=== PATIENT | female | born 1940 | race Caucasian/White ===

== ENCOUNTER → 2018-06-18 | Outpatient (CLI) | payer MEDICARE ==
--- NOTE | 2018-06-18 16:08 | BD ---
EXAMINATION TYPE: Axial Bone Density DATE OF EXAM: 06/18/2018 COMPARISON: NONE CLINICAL HISTORY: screening Height: 5'1 1/2 Weight: 157 FRAX RISK QUESTIONS: Secondary Osteoporosis: RISK FACTORS HISTORY OF: Postmenopausal woman: y Lost more than 2 inches in height since high school: y MEDICATIONS: Thyroid Medications: Which medication: Synthroid How Lon years Additional Medications: allergies, arthritis, Additional History: EXAM MEASUREMENTS: Bone mineral densitometry was performed using the [email or web address] System. Bone mineral density as measured about the Lumbar spine is: ----- L1-L4(G/cm2): 1.526 T Score Values are as follows: ----- L2: 3.1 ----- L3: 5.1 ----- L4: 2.8 ----- L1-L4: 2.9 Bone mineral density about the R hip (g/cm2): 1.068 Bone mineral density about the L hip (g/cm2): 1.030 T Score values are as follows: -----R Neck: 0.2 -----L Neck: -0.1 -----R Total: 0.6 -----L Total: 0.7 IMPRESSION: Normal (Values between +1 and -1 indicate normal bone mass). Consider repeating this study in 5 year s or sooner if there is some new clinical indication. NOTE: T-SCORE=SD OF THE YOUNG ADULT MEAN.
== END ==
LOC: RADBDWWP 13:08
PROVIDERS: ATTEND Family Medicine
DX: Z13.820 Encounter for screening for osteoporosis (principal)
CPT/HCPCS: 77080

== ENCOUNTER 2018-12-04 17:03 | Inpatient (IN) | payer MEDICARE ==
[2018-12-04] MEDS ORDERED: metroNIDAZOLE-NS PMX 500 MG in SALINE 1 100ML.BAG IVPB STA (18:00)
[2018-12-04] MEDS ORDERED: NALOXONE 0.4 MG/ML 1 ML VIAL IV PRN (18:34)
--- NOTE | 2018-12-04 18:34 | ED ---
Abdominal Pain HPI - General Chief Complaint: Abdominal Pain Stated Complaint: Acute appendicitis Time Seen by Provider: 12/04/18 17:59 Source: patient Mode of arrival: ambulatory Limitations: no limitations - History of Present Illness Initial Comments: 78-year-old female presenting with chief complaint of appendicitis. Patient states on Monday she began to develop generalized abdominal pain and malaise. She had a Tmax 102 over the weekend. States he presented to her primary care physician he was concern for appendicitis so we sent her for an outpatient CT. Patient states she was then sent to the ER as a CT showed appendicitis. She currently denies any nausea vomiting or abdominal pain. She states she is not on a blood thinner. She last ate or drank 3 hours prior. She has no previous history of abdominal surgeries. - Related Data Home Medications Medication Instructions Recorded Confirmed Cholecalciferol [Vitamin D3] 2,000 unit PO DAILY 07/23/15 12/04/18 Gabapentin [Neurontin] 300 mg PO BID 07/23/15 12/04/18 Levocetirizine Dihydrochloride 5 mg PO DAILY 07/23/15 12/04/18 [Xyzal] Levothyroxine Sodium [Synthroid] 137 mcg PO DAILY 07/23/15 12/04/18 Meloxicam 15 mg PO DAILY 07/23/15 12/04/18 Vitamin B Complex 1 cap PO DAILY 07/23/15 12/04/18 Ca/D3/Mag/Zinc/[place]/Ab/Mgbor 1 tab PO BID 07/24/15 12/04/18 [Caltrate 600+D3+Min Chew Tab] Acetaminophen [Tylenol Extra 1,000 mg PO HS 12/04/18 12/04/18 Strength] Aspirin EC [Ecotrin Low Dose] 81 mg PO HS 12/04/18 12/04/18 Allergies Allergy/AdvReac Type Severity Reaction Status Date / Time erythromycin base AdvReac STOMACH Verified 12/04/18 17:59 UPSET SEASONAL Allergy EYES RED, Uncoded 12/04/18 17:22 RHINITIS Review of Systems ROS Statement: Those systems with pertinent positive or pertinent negative responses have been documented in the HPI. Review of Systems Constitutional: Positive fever, chills Eyes: Denies change in vision, Denies pain Ears, nose, mouth, throat: Denies headaches, Denies sore throat Cardiovascular: Denies chest pain. Denies palpitations Respiratory: Denies shortness of breath, Denies cough Gastrointestinal: Positive abdominal pain. Denies nausea, vomiting, diarrhea. Genitourinary: Denies hematuria, Denies infections Musculoskeletal: Denies pain, Denies swelling Integumentary: Denies rash Neurological: Denies headache, focal weakness, focal numbness Psychiatric: Denies anxiety, Denies depression Hematologic/Lymphatic: Denies easy bleeding or bruising ROS Other: All systems not noted in ROS Statement are negative. Past Medical History Past Medical History: Asthma, COPD, Eye Disorder, Hearing Disorder / Deafness, Osteoarthritis (OA), Thyroid Disorder Additional Past Medical History / Comment(s): ALLERGIC RHINITIS. CATARACTS. BACK, NECK PROB. RT KNEE INJ. VARICOSE VEINS. LT FOOT/ANKLE INJ RECENTLY, WEARING PRESSURE STOCKING. History of Any Multi-Drug Resistant Organisms: None Reported Past Surgical History: Breast Surgery Additional Past Surgical History / Comment(s): 1968 EXC RT BREAST BENIGN CYST, LOCAL ONLY. Past Anesthesia/Blood Transfusion Reactions: No Reported Reaction Additional Past Anesthesia/Blood Transfusion Reaction / Comment(s): NO PREVIOUS ANESTHESIA. Past Psychological History: Depression Smoking Status: Former smoker - Past Family History Mother Family Medical History: No Reported History General Exam - General Exam Comments Initial Comments: General: Awake, alert, No acute Distress HENT: Normocephalic. Atraumatic Eyes: PERRL. EOMI. No scleral icterus. No injected conjunctiva Neck: Full ROM Chest/Lungs: Clear to auscultation bilaterally. No wheezing, rhonchi, or rales Cardiac: Regular rate, rhythm. No murmurs or rubs Abdomen/GI: Soft. RLQ tenderness. No rebound, guarding, or rigidity. Musculoskeletal: Full ROM Skin: Warm, dry, intact Neurologic: A/Ox3, no weakness, no sensory deficit, no abnormal gait, no coordination deficit Limitations: no limitations Course Vital Signs 12/04/18 12/04/18 17:20 19:01 Temperature 99.0 F Pulse Rate 93 93 Respiratory 16 18 Rate Blood Pressure 133/77 137/81 O2 Sat by Pulse 96 98 Oximetry Medical Decision Making - Medical Decision Making 78-year-old female presenting with appendicitis. Initial exam the patient is awake, alert, no acute distress. VSS. Spoke with Dr. Farris was agreeable to a surgical admission. She is resting comfortable. Dr. Farris spoke with IR to have a drain placed in the patient's intraabominal abscess. She is currently stable for transfer to the floor. - Lab Data Result diagrams: 12/04/18 18:43 12/04/18 18:43 Disposition Clinical Impression: Acute appendicitis Disposition: ADMITTED IP TO THIS [facility] Decision to Admit Reason: Admit from EC Decision Date: 12/04/18 Decision Time: 18:34
[2018-12-04] MEDS: SODIUM CHLORIDE 0.9% 1,000 ML IV SCH (18:56)
[2018-12-04 18:57] LABS: Basophils # (A) 0.1 k/uL (0-0.2); Basophils % (A) 1 %; Eosinophils # (A) 0.3 k/uL (0-0.7); Eosinophils % (A) 3 %; HGB 12.6 gm/dL (11.4-16.0); Lymphocytes # (A) 1.5 k/uL (1.0-4.8); Lymphocytes % (A) 15 %; MCH 30.3 pg (25.0-35.0); MCHC 33.2 g/dL (31.0-37.0); MCV 91.3 fL (80.0-100.0); Mean Platelet Volume 7.6; Monocytes # (A) 0.5 k/uL (0-1.0); Monocytes % (A) 5 %; Neutrophils # (A) 7.1 k/uL (1.3-7.7); Neutrophils % (A) 73 %; Platelet Count 272 k/uL (150-450); RBC 4.17 m/uL (3.80-5.40); RDW 12.6 % (11.5-15.5); WBC 9.7 k/uL (3.8-10.6)
[2018-12-04 19:04] LABS: INR 0.9 (<1.2); Prothrombin Time 9.8 sec (9.0-12.0)
[2018-12-04 19:06] LABS: African American GFR (CKD) >90 (>60 ml/min/1.73 sqM); Anion Gap 9 mmol/L; Blood Urea Nitrogen 15 mg/dL (7-17); Calcium 9.6 mg/dL (8.4-10.2); Carbon Dioxide 29 mmol/L (22-30); Chloride 101 mmol/L (98-107); Glucose 87 mg/dL (74-99); Potassium 4.4 mmol/L (3.5-5.1); Sodium 139 mmol/L (137-145)
--- NOTE | 2018-12-04 20:37 | P.GSHP ---
History of Present Illness H&P Date: 12/04/18 78-year-old female presents to the emergency department after instructed by her primary care physician. She began having abdominal pain 1 week ago and did visit her primary care physician at that time. She states that it was a significant amount of abdominal pain and distention. She received some medication for pain and for nausea at that time. She was also scheduled for a computed tomography scan that she scheduled for today, which is 5 days after her presentation to her primary care physician's office. She states that the day after she visited her primary care doctor, her pain resolved and she had some bloating. She states that she denies any nausea or vomiting. She was kept on a clear liquid diet by her primary care physician for the past 5 days. She denies any change in bowel function. On CT that was performed, there was concern of appendicitis and a 4.7 x 3 x 3 cm abscess. Currently, the patient states she has some mild tenderness on the right side of her abdomen. She denies any fevers, chills, chest pain or shortness of breath over the past few days. She did have a febrile episode 5 days ago. - Review of Systems All systems: negative Past Medical History Past Medical History: Asthma, COPD, Eye Disorder, Hearing Disorder / Deafness, Osteoarthritis (OA), Thyroid Disorder Additional Past Medical History / Comment(s): ALLERGIC RHINITIS. CATARACTS. BACK, NECK PROB. RT KNEE INJ. VARICOSE VEINS. LT FOOT/ANKLE INJ RECENTLY, WEARING PRESSURE STOCKING. History of Any Multi-Drug Resistant Organisms: None Reported Past Surgical History: Breast Surgery Additional Past Surgical History / Comment(s): 1968 EXC RT BREAST BENIGN CYST, LOCAL ONLY. Past Anesthesia/Blood Transfusion Reactions: No Reported Reaction Additional Past Anesthesia/Blood Transfusion Reaction / Comment(s): NO PREVIOUS ANESTHESIA. Past Psychological History: Depression Smoking Status: Former smoker - Past Family History Mother Family Medical History: No Reported History Medications and Allergies Home Medications Medication Instructions Recorded Confirmed Type Cholecalciferol [Vitamin D3] 2,000 unit PO DAILY 07/23/15 12/04/18 History Gabapentin [Neurontin] 300 mg PO BID 07/23/15 12/04/18 History Levocetirizine Dihydrochloride 5 mg PO DAILY 07/23/15 12/04/18 History [Xyzal] Levothyroxine Sodium [Synthroid] 137 mcg PO DAILY 07/23/15 12/04/18 History Meloxicam 15 mg PO DAILY 07/23/15 12/04/18 History Vitamin B Complex 1 cap PO DAILY 07/23/15 12/04/18 History Ca/D3/Mag/Zinc/[place]/Ab/Mgbor 1 tab PO BID 07/24/15 12/04/18 History [Caltrate 600+D3+Min Chew Tab] Acetaminophen [Tylenol Extra 1,000 mg PO HS 12/04/18 12/04/18 History Strength] Aspirin EC [Ecotrin Low Dose] 81 mg PO HS 12/04/18 12/04/18 History Allergies Allergy/AdvReac Type Severity Reaction Status Date / Time erythromycin base AdvReac STOMACH Verified 12/04/18 17:59 UPSET SEASONAL Allergy EYES RED, Uncoded 12/04/18 17:22 RHINITIS Surgical - Exam Osteopathic Statement: *. No significant issues noted on an osteopathic structural exam other than those noted in the History and Physical/Consult. Vital Signs Temp Pulse Resp BP Pulse Ox 99.0 F 93 16 133/77 96 12/04/18 17:20 12/04/18 17:20 12/04/18 17:20 12/04/18 17:20 12/04/18 17:20 - General well nourished, no distress - Eyes PERRL, normal ocular movement - ENT normal mucosa, no hearing loss - Neck trachea midline - Respiratory normal respiratory effort - Abdomen Soft mild tenderness to palpation in bilateral lower quadrants, no distention, no rebound, no guarding - Neurologic normal coordination, normal sensation - Psychiatric oriented to time, oriented to person, oriented to place Results - Labs 12/04/18 18:43 12/04/18 18:43 Diabetes panel 12/04/18 Range/Units 18:43 Sodium 139 (137-145) mmol/L Potassium 4.4 (3.5-5.1) mmol/L Chloride 101 (98-107) mmol/L Carbon Dioxide 29 (22-30) mmol/L BUN 15 (7-17) mg/dL Creatinine 0.71 (0.52-1.04) mg/dL Glucose 87 (74-99) mg/dL Calcium 9.6 (8.4-10.2) mg/dL Calcium panel 12/04/18 Range/Units 18:43 Calcium 9.6 (8.4-10.2) mg/dL Pituitary panel 12/04/18 Range/Units 18:43 Sodium 139 (137-145) mmol/L Potassium 4.4 (3.5-5.1) mmol/L Chloride 101 (98-107) mmol/L Carbon Dioxide 29 (22-30) mmol/L BUN 15 (7-17) mg/dL Creatinine 0.71 (0.52-1.04) mg/dL Glucose 87 (74-99) mg/dL Calcium 9.6 (8.4-10.2) mg/dL Adrenal panel 12/04/18 Range/Units 18:43 Sodium 139 (137-145) mmol/L Potassium 4.4 (3.5-5.1) mmol/L Chloride 101 (98-107) mmol/L Carbon Dioxide 29 (22-30) mmol/L BUN 15 (7-17) mg/dL Creatinine 0.71 (0.52-1.04) mg/dL Glucose 87 (74-99) mg/dL Calcium 9.6 (8.4-10.2) mg/dL - Imaging CT scan - abdomen: report reviewed, image reviewed (Abscess, fluid collection noted in the right lower quadrant) Assessment and Plan (1) Acute appendicitis Narrative/Plan: 78-year-old female with appendicitis and periappendiceal abscess - I did discuss the case in depth with the patient and the patient's family. Due to the periappendiceal abscess, the options of initial surgical intervention and IR drainage were presented to the patient. The case was also discussed with the current on-call radiologist/interventional radiologist and the abscess collection is amenable to IR drainage. The patient has opted for IR intervention with drainage. We will keep the patient nothing by mouth until drainage is performed. We will also continue IV antibiotics at this time. Further recommendations to follow. Current Visit: Yes Status: Acute Code(s): K35.80 - UNSPECIFIED ACUTE APPENDICITIS SNOMED Code(s): 05546324
[2018-12-04] MEDS: GABAPENTIN 300 MG CAP PO SCH (20:51)
[2018-12-04] MEDS: PIPERACILLIN-TAZOBACTAM 3.375 GM in SODIUM CHLORIDE 0.9% 100 ML IVPB SCH (23:12)
[2018-12-05] MEDS: LEVOTHYROXINE 137 MCG TAB PO SCH (05:29)
--- NOTE | 2018-12-05 08:20 | P.PN ---
Subjective Progress Note Date: 12/05/18 Patient seen and examined at bedside. No acute events. States she is hungry. Objective - Vital Signs Vital signs: Vital Signs Temp 98.6 F 12/05/18 01:52 Pulse 94 12/05/18 01:52 Resp 16 12/05/18 01:52 BP 110/67 12/05/18 01:52 Pulse Ox 93 L 12/05/18 01:52 Intake & Output 12/04/18 12/05/18 12/05/18 18:59 06:59 18:59 Intake Total 800 Balance 800 Weight 66.678 kg Intake: Intake, IV Titration 800 Amount Piperacillin-Tazobactam 3 100 .375 gm In Sodium Chloride 0.9% 100 ml @ 25 mls/hr IVPB Q8HR [facility] Rx# :[id number] Sodium Chloride 0.9% 1, 600 000 ml @ 75 mls/hr IV . [id number] [facility] Rx#:[id number] metroNIDAZOLE-NS PMX 500 100 mg In Saline 1 100ml.bag @ 100 mls/hr IVPB ONCE STA Rx#:[id number] Other: Voiding Method Toilet # Voids 4 - Constitutional General appearance: Present: cooperative, no acute distress - EENT Eyes: Present: PERRLA - Respiratory Details: No difficulty with respiration - Gastrointestinal Gastrointestinal Comment(s): Soft, mild tenderness to palpation in right lower quadrant, nondistended, no rebound, no guarding - Psychiatric Psychiatric: Present: A&O x's 3 - Labs CBC & Chem 7: 12/04/18 18:43 12/04/18 18:43 Assessment and Plan (1) Acute appendicitis Narrative/Plan: 78-year-old female with complicated appendicitis and periappendiceal abscess - Plan for IR drainage of complicated appendicitis with appendiceal abscess. - IV antibiotics - ID consultation was placed for antibiotics as an inpatient and outpatient - Further recommendations after IR drainage Current Visit: Yes Status: Acute Code(s): K35.80 - UNSPECIFIED ACUTE APPENDICITIS SNOMED Code(s): 10672383
[2018-12-05] MEDS: PIPERACILLIN-TAZOBACTAM 3.375 GM in SODIUM CHLORIDE 0.9% 100 ML IVPB SCH ×3 (09:59→22:52)
[2018-12-05] MEDS: GABAPENTIN 300 MG CAP PO SCH ×2 (10:00→21:42)
[2018-12-05] MEDS ORDERED: HYDROmorphone 0.5 MG/0.5 ML SYRINGE IVP STA (11:48)
[2018-12-05] MEDS: SODIUM CHLORIDE 0.9% 1,000 ML IV SCH ×2 (12:31→22:12)
--- NOTE | 2018-12-05 14:48 | CT ---
EXAMINATION TYPE: CT guided abscess drainage DATE OF EXAM: 12/05/2018 COMPARISON: CT abdomen pelvis 12/04/2018 HISTORY: Pelvic abscess CT DLP: 892 mGycm Automated exposure control for dose reduction was used. PROCEDURE: Maximal barrier technique was utilized. The skin over suitable path to the abscess was localized wit h CT and the overlying skin prepped and draped. Lidocaine was used for local anesthesia. A skin lissette k made with a scalpel. Access was gained using CT guidance with a 21-gauge needle, purulent material returned in the hub of the needle. A 0.018 inch wire was advanced and the access site was upsized, the wire was upsized and subsequently an 8.5-Bruneian drain was deployed within the abscess cavity and fixed in place. Catheter attached to gravity drainage. Postprocedure imaging verified placement of t he catheter within the abscess. No immediate complication. Purulent material sent for laboratory toño lysis, approximately 20 cc were aspirated and draining into the bag. The patient remained in stable condition. IMPRESSION: STATUS POST CT GUIDED ABSCESS DRAINAGE, MICROBIOLOGY ANALYSIS IS PENDING. THIS PROCEDURE WAS PERFORM ED BY THE UNDERSIGNED. IMPRESSION:
[2018-12-05] MEDS ORDERED: HYDROcodone/APAP 5-325MG 1 EACH TAB PO PRN (17:02)
[2018-12-05] MEDS ORDERED: MORPHINE SULFATE 2 MG/ML SYRINGE IVP PRN (17:02)
[2018-12-06] MEDS: LEVOTHYROXINE 137 MCG TAB PO SCH (05:11)
[2018-12-06] MEDS: PIPERACILLIN-TAZOBACTAM 3.375 GM in SODIUM CHLORIDE 0.9% 100 ML IVPB SCH (07:49)
[2018-12-06] MEDS: GABAPENTIN 300 MG CAP PO SCH ×2 (07:49→20:12)
[2018-12-06 08:09] LABS: Basophils # (A) 0.1 k/uL (0-0.2); Basophils % (A) 1 %; Eosinophils # (A) 0.2 k/uL (0-0.7); Eosinophils % (A) 3 %; HCT 38.2 % (34.0-46.0); HGB 12.2 gm/dL (11.4-16.0); Lymphocytes # (A) 1.4 k/uL (1.0-4.8); Lymphocytes % (A) 16 %; MCH 29.5 pg (25.0-35.0); MCHC 31.8 g/dL (31.0-37.0); MCV 92.6 fL (80.0-100.0); Monocytes # (A) 0.4 k/uL (0-1.0); Monocytes % (A) 5 %; Neutrophils # (A) 6.1 k/uL (1.3-7.7); Neutrophils % (A) 72 %; Platelet Count 305 k/uL (150-450); RBC 4.13 m/uL (3.80-5.40); RDW 12.6 % (11.5-15.5); WBC 8.5 k/uL (3.8-10.6)
[2018-12-06 08:26] LABS: African American GFR (CKD) >90 (>60 ml/min/1.73 sqM); Anion Gap 8 mmol/L; Blood Urea Nitrogen 10 mg/dL (7-17); Calcium 9.1 mg/dL (8.4-10.2); Carbon Dioxide 29 mmol/L (22-30); Chloride 103 mmol/L (98-107); Glucose 87 mg/dL (74-99); Potassium 4.3 mmol/L (3.5-5.1); Sodium 140 mmol/L (137-145)
--- NOTE | 2018-12-06 11:23 | P.CONS ---
History of Present Illness - Reason for Consult Consult date: 12/05/18 Abdominal abscess Requesting physician: Jarred Farris - Chief Complaint Abdominal pain and abnormal Abd CT - History of Present Illness Patient is a 78-year-old female started having abdominal pain predominantly in the left lower abdominal area describing it to be more frequent crampy nature 5-6 out of 10 having no radiation associated nausea but no vomiting patient symptoms with the same symptoms she was evaluated by her primary care physician on Monday patient did received a dose of IM antiemetic and pain medication as CT of abdominal pelvis was scheduled patient did not receive any antibiotics, patient did have a CT of abdominal pelvis completed on 12/04/2018 which was reported as appendicitis with periappendiceal abscess patient was to call in and reported to report to the ER subsequently has been admitted hospital the patient was started on Rocephin and Flagyl antibiotic was switched over to Zosyn 3.75 g every 8 hours intervention radiology has been consulted for drainage of this abscess infection disease was consulted for management of her antibiotic therapy As of this morning the patient is afebrile she did have some chills though. The patient right lower quadrant abdominal pain has improved or decrease in intensity some nausea but no vomiting she is recovering of diarrhea did have 2 loose stools with no bloody mucus in the stools no urinary symptoms though Review of Systems Positive point has been mentioned in the HPI rest of the systems are negative Past Medical History Past Medical History: Asthma, COPD, Eye Disorder, Hearing Disorder / Deafness, Osteoarthritis (OA), Thyroid Disorder Additional Past Medical History / Comment(s): ALLERGIC RHINITIS. CATARACTS. BACK, NECK PROB. RT KNEE INJ. VARICOSE VEINS. LT FOOT/ANKLE INJ RECENTLY, WEARING PRESSURE STOCKING. History of Any Multi-Drug Resistant Organisms: None Reported Past Surgical History: Breast Surgery Additional Past Surgical History / Comment(s): 1968 EXC RT BREAST BENIGN CYST, LOCAL ONLY. Past Anesthesia/Blood Transfusion Reactions: No Reported Reaction Additional Past Anesthesia/Blood Transfusion Reaction / Comm: NO PREVIOUS ANESTHESIA. Past Psychological History: Depression Smoking Status: Former smoker - Past Family History Mother Family Medical History: No Reported History Father Family Medical History: Congestive Heart Failure (CHF) Medications and Allergies Home Medications Medication Instructions Recorded Confirmed Type Cholecalciferol [Vitamin D3] 2,000 unit PO DAILY 07/23/15 12/04/18 History Gabapentin [Neurontin] 300 mg PO BID 07/23/15 12/04/18 History Levocetirizine Dihydrochloride 5 mg PO DAILY 07/23/15 12/04/18 History [Xyzal] Levothyroxine Sodium [Synthroid] 137 mcg PO DAILY 07/23/15 12/04/18 History Meloxicam 15 mg PO DAILY 07/23/15 12/04/18 History Vitamin B Complex 1 cap PO DAILY 07/23/15 12/04/18 History Ca/D3/Mag/Zinc/[place]/Ab/Mgbor 1 tab PO BID 07/24/15 12/04/18 History [Caltrate 600+D3+Min Chew Tab] Acetaminophen [Tylenol Extra 1,000 mg PO HS 12/04/18 12/04/18 History Strength] Aspirin EC [Ecotrin Low Dose] 81 mg PO HS 12/04/18 12/04/18 History Allergies Allergy/AdvReac Type Severity Reaction Status Date / Time erythromycin base AdvReac STOMACH Verified 12/04/18 17:59 UPSET SEASONAL Allergy EYES RED, Uncoded 12/04/18 17:22 RHINITIS Physical Exam Vitals: Vital Signs Temp Pulse Pulse Resp BP BP Pulse Ox 12/05/18 07:00 98.4 F 90 15 107/67 94 L 12/05/18 01:52 98.6 F 94 16 110/67 93 L 12/04/18 20:36 98.6 F 85 16 136/81 95 12/04/18 19:01 93 18 137/81 98 12/04/18 17:20 99.0 F 93 16 133/77 96 Intake and Output 12/04/18 12/05/18 12/05/18 22:59 06:59 14:59 Intake Total 100 700 Balance 100 700 Intake: Intake, IV Titration 100 700 Amount Piperacillin-Tazobactam 3 100 .375 gm In Sodium Chloride 0.9% 100 ml @ 25 mls/hr IVPB Q8HR [facility] Rx# :[id number] Sodium Chloride 0.9% 1, 600 000 ml @ 75 mls/hr IV . [id number] [facility] Rx#:[id number] metroNIDAZOLE-NS PMX 500 100 mg In Saline 1 100ml.bag @ 100 mls/hr IVPB ONCE STA Rx#:[id number] Other: Voiding Method Toilet # Voids 1 4 Weight 66.678 kg GENERAL DESCRIPTION: Elderly female up in the room, no distress. No tachypnea or accessory muscle of respiration use. HEENT: Shows Pallor , no scleral icterus. Oral mucous membrane is dry. No pharyngeal erythema or thrush NECK: Trachea central, no thyromegaly. LUNGS: Unlabored breathing. Clear to auscultation anteriorly. No wheeze or crackle. HEART: S1, S2, regular rate and rhythm. No loud murmur ABDOMEN: Soft, mild right lower quadrant tenderness , no guarding or rigidity, no organomegaly EXTREMITIES: No edema of feet. SKIN: No rash, no masses palpable. NEUROLOGICAL: The patient is awake, alert, oriented x3, mood and affect normal. Results CBC & Chem 7: 12/06/18 07:43 12/06/18 07:43 Assessment and Plan Assessment: 1-patient with acute ruptured appendicitis with periappendiceal abscess in this patient who has not been treated in outpatient setting with an antibiotic could be secondary to sensitive enteric gram-negative both aerobes and anaerobes, scheduled for CT-guided drainage of this abscess later this morning at which time both aerobic and anaerobic culture should be obtained to guide her discharge and by therapy 2-patient with erythromycin ALLERGIES Plan: 1-patient to continue on Zosyn 3.375 g every 8 hours 2-gentle IV fluid We will follow on clinical condition and cultures to further adjust medication if needed Thank you for this consultation will follow this patient with you Time with Patient: Greater than 30
--- NOTE | 2018-12-06 12:04 | P.PN ---
Subjective Progress Note Date: 12/06/18 Patient seen and examined at bedside. She did undergo CT-guided drainage of abscess yesterday. 20 mL of purulent material was drained. Culture is pending. She was also evaluated by infectious disease. Currently, she states she is comfortable. She denies any nausea or vomiting. She is having bowel function. Objective - Vital Signs Vital signs: Vital Signs Temp 98.2 F 12/06/18 08:00 Pulse 86 12/06/18 10:36 Resp 16 12/06/18 10:36 BP 110/71 12/06/18 08:00 Pulse Ox 94 L 12/06/18 08:00 Intake & Output 12/05/18 12/06/18 12/06/18 18:59 06:59 18:59 Intake Total 100 1200 Output Total 5 5 Balance 100 1195 -5 Intake: Intake, IV Titration 100 Amount Piperacillin-Tazobactam 3 100 .375 gm In Sodium Chloride 0.9% 100 ml @ 25 mls/hr IVPB Q8HR [facility] Rx# :[id number] Oral 1200 Output: Drainage 5 5 Right Lower Abdomen 5 5 Other: Voiding Method Toilet Toilet Toilet # Voids 2 1 - Constitutional General appearance: Present: cooperative, no acute distress - EENT Eyes: Present: PERRLA - Respiratory Details: No difficulty with respiration - Gastrointestinal Gastrointestinal Comment(s): Soft, nontender, nondistended, no rebound, no guarding, drain in place and right lower quadrant with mild serous drainage in catheter bag - Psychiatric Psychiatric: Present: A&O x's 3 - Labs CBC & Chem 7: 12/06/18 07:43 12/06/18 07:43 Labs: Microbiology - Last 24 Hours (Table) 12/05/18 12:18 Gram Stain - Preliminary Aspirate Body Fluid Culture - Preliminary 12/05/18 12:18 Anaerobic Culture - Preliminary Aspirate Assessment and Plan (1) Acute appendicitis Narrative/Plan: 78-year-old female with complicated appendicitis and periappendiceal abscess - IR drainage was completed, pending cultures - IV antibiotics per infectious disease - Will advance to soft diet - Discharge planning once cultures return for outpatient antibiotics - Continue drain Current Visit: Yes Status: Acute Code(s): K35.80 - UNSPECIFIED ACUTE APPENDICITIS SNOMED Code(s): 72356663
[2018-12-06] MEDS: SODIUM CHLORIDE 0.9% 1,000 ML IV SCH (12:38)
[2018-12-06] MEDS: CHOLESTYRAMINE (WITH SUGAR) 4 GM PACKET PO SCH (17:52)
[2018-12-06] MEDS: AMPICILLIN-SULBACTAM 3 GM in SODIUM CHLORIDE 0.9% 100 ML IVPB SCH (17:52)
--- NOTE | 2018-12-06 20:00 | PN ---
PROGRESS NOTE DATE OF SERVICE: 12/06/2018 REASON FOR FOLLOWUP: Acute appendicitis with periappendicular abscess. INTERVAL HISTORY: The patient is currently afebrile. The patient has been breathing comfortably. The patient's pain to the left lower abdominal area has improved. The main symptom has been diarrhea. No nausea, no vomiting. She is status post a CT-guided drainage of this abscess with removal of about 20 mL of pus. The drainage catheter has been left in place. PHYSICAL EXAMINATION: Blood pressure 102/68 with a pulse of 86, temperature 98.7. She is 96% on room air. General description is an elderly female lying in bed in no distress. RESPIRATORY SYSTEM: Unlabored breathing. Clear to auscultation anteriorly. HEART: S1, S2. Regular rate and rhythm. ABDOMEN: Soft. No tenderness. Drainage catheter with minimal amount of purulent secretions. EXTREMITIES: No edema of the feet. LABS: Hemoglobin is 12.1, white count 8.5. BUN of 10, creatinine 0.71. The abdominal cultures are currently pending. DIAGNOSTIC IMPRESSION AND PLAN: Patient with acute appendicitis, perforated with periappendiceal abscess, status post CT-guided drainage. Gram stain with gram-positive cocci, possible enterococcus. We will switch her antibiotic therapy to Unasyn 3 grams q.6 hours and adjust antibiotic further on the basis of the culture report. Continue with supportive care. MMODL / IJN: [id number] /
[2018-12-07] MEDS: AMPICILLIN-SULBACTAM 3 GM in SODIUM CHLORIDE 0.9% 100 ML IVPB SCH ×4 (00:59→19:25)
[2018-12-07] MEDS: SODIUM CHLORIDE 0.9% 1,000 ML IV SCH ×2 (01:52→19:24)
[2018-12-07] MEDS: LEVOTHYROXINE 137 MCG TAB PO SCH (05:36)
[2018-12-07] MEDS: GABAPENTIN 300 MG CAP PO SCH ×2 (08:40→19:58)
[2018-12-07] MEDS: CHOLESTYRAMINE (WITH SUGAR) 4 GM PACKET PO SCH ×2 (08:41→19:38)
--- NOTE | 2018-12-07 11:33 | P.PN ---
Subjective Progress Note Date: 12/07/18 Patient seen and examined at bedside. No acute events. Drain with serosanguineous output. Tolerating soft diet. Complains of some episodes of loose stool. Objective - Vital Signs Vital signs: Vital Signs Temp 97.5 F L 12/07/18 07:32 Pulse 76 12/07/18 07:32 Resp 18 12/07/18 07:32 BP 132/71 12/07/18 07:32 Pulse Ox 95 12/07/18 07:32 Intake & Output 12/06/18 12/07/18 12/07/18 18:59 06:59 18:59 Output Total 10 Balance -10 Output: Drainage 10 Right Lower Abdomen 10 Other: Voiding Method Toilet Toilet # Voids 3 - Constitutional General appearance: Present: cooperative, no acute distress - EENT Eyes: Present: PERRLA - Respiratory Details: No difficulty with respiration - Gastrointestinal Gastrointestinal Comment(s): Soft, nontender, nondistended, no rebound, no guarding, drain site clean, dry and intact with drain in place with serosanguineous output and catheter bag - Psychiatric Psychiatric: Present: A&O x's 3 - Labs CBC & Chem 7: 12/06/18 07:43 12/06/18 07:43 Assessment and Plan (1) Acute appendicitis Narrative/Plan: 78-year-old female with complicated appendicitis and periappendiceal abscess - IR drainage was completed, pending cultures - IV antibiotics per infectious disease - Continue soft diet - Discharge planning once cultures return for outpatient antibiotics - Continue drain for now Current Visit: Yes Status: Acute Code(s): K35.80 - UNSPECIFIED ACUTE APPE NDICITIS SNOMED Code(s): 92926494
--- NOTE | 2018-12-07 16:40 | PN ---
PROGRESS NOTE DATE OF SERVICE: 12/07/2018. REASON FOR FOLLOWUP: Ruptured appendicitis with periappendiceal abscess. INTERVAL HISTORY: The patient is currently afebrile. The patient has been breathing comfortably. The patient denies having any chest pain, shortness of breath or cough. No nausea, no vomiting. Her diarrhea has improved. PHYSICAL EXAMINATION: Her blood pressure is 132/71, pulse of 76, temperature 97.5. She is 95% on room air. General description is an elderly female lying in bed in no distress. RESPIRATORY SYSTEM: Unlabored breathing. Clear to auscultation anteriorly. HEART: S1, S2. Regular rate and rhythm. ABDOMEN: Soft. No tenderness. The drainage catheter did not have significant output. LABS: The fluid culture is showing alpha-hemolytic Streptococcus. DIAGNOSTIC IMPRESSION AND PLAN: Patient with a periappendiceal abscess, status post CT-guided drainage. The patient is currently covered with IV Unasyn. Plan to transition to oral Augmentin 875 b.i.d. for another 7-10 days with close outpatient followup. Continue supportive care. MMODL / IJN: [id number] /
[2018-12-08] MEDS: AMPICILLIN-SULBACTAM 3 GM in SODIUM CHLORIDE 0.9% 100 ML IVPB SCH ×3 (01:04→11:58)
[2018-12-08] MEDS: LEVOTHYROXINE 137 MCG TAB PO SCH (06:16)
[2018-12-08 07:41] VITALS: BP 125/81; PULSE 82; RESP 15; TEMP 98
[2018-12-08] MEDS: GABAPENTIN 300 MG CAP PO SCH (09:35)
[2018-12-08] MEDS: CHOLESTYRAMINE (WITH SUGAR) 4 GM PACKET PO SCH (09:35)
--- NOTE | 2018-12-08 10:07 | P.DS ---
Providers Date of admission: 12/05/18 13:19 Attending physician: Jarred Farris DO Consults: 12/05/18 08:17 Consult Physician Routine Consulting Provider: Victoria Rai Consult Reason/Comments: Complicated Appendicitis/Abscess Do you want consulting provider notified?: Yes Primary care physician: Isidro Lewis - Discharge Diagnosis(es) (1) Acute appendicitis Current Visit: Yes Status: Acute Hospital Course: 78-year-old female presented initially secondary to abnormal CT finding of abscess in the right lower quadrant. On workup, she appeared to have a ruptured appendicitis that resulted in an abscess. She did undergo IR drainage while in the hospital with removal of 20 mL of purulent material and multiple days of catheter drainage. Catheter was removed today, prior to discharge order being placed. She was evaluated by infectious disease during her admission. Cultures were drawn on purulent drainage and ID recommends Augmentin on discharge. The patient is currently surgically stable for discharge. She will be discharged on antibiotics. She is to follow with the surgeon and infectious disease doctor as an outpatient. Procedures: IR abscess drainage Patient Condition at Discharge: Fair Plan - Discharge Summary New Discharge Prescriptions: New Cholestyramine (with Sugar) [Questran Packet] 4 gm PO BID #20 packet Omeprazole 20 mg PO DAILY #30 tablet. Amoxicillin/Potassium Clav [Augmentin 875-125 Tablet] 1 tab PO Q12HR #20 tab Continue Vitamin B Complex 1 cap PO DAILY Cholecalciferol [Vitamin D3 (25 Mcg = 1000 Iu)] 2,000 unit PO DAILY Levothyroxine Sodium [Synthroid] 137 mcg PO DAILY Levocetirizine Dihydrochloride [Xyzal] 5 mg PO DAILY Meloxicam 15 mg PO DAILY Gabapentin [Neurontin] 300 mg PO BID Ca/D3/Mag/Zinc/[place]/Ab/Mgbor [Caltrate 600-D3-Min Chew Tab] 1 tab PO BID Aspirin EC [Ecotrin Low Dose] 81 mg PO HS Acetaminophen [Tylenol Extra Strength] 1,000 mg PO HS Discharge Medication List Cholecalciferol [Vitamin D3 (25 Mcg = 1000 Iu)] 2,000 unit PO DAILY 07/23/15 [History] Gabapentin [Neurontin] 300 mg PO BID 07/23/15 [History] Levocetirizine Dihydrochloride [Xyzal] 5 mg PO DAILY 07/23/15 [History] Levothyroxine Sodium [Synthroid] 137 mcg PO DAILY 07/23/15 [History] Meloxicam 15 mg PO DAILY 07/23/15 [History] Vitamin B Complex 1 cap PO DAILY 07/23/15 [History] Ca/D3/Mag/Zinc/[place]/Ab/Mgbor [Caltrate 600-D3-Min Chew Tab] 1 tab PO BID 07/24/15 [History] Acetaminophen [Tylenol Extra Strength] 1,000 mg PO HS 12/04/18 [History] Aspirin EC [Ecotrin Low Dose] 81 mg PO HS 12/04/18 [History] Amoxicillin/Potassium Clav [Augmentin 875-125 Tablet] 1 tab PO Q12HR #20 tab 12/08/18 [Rx] Cholestyramine (with Sugar) [Questran Packet] 4 gm PO BID #20 packet 12/08/18 [Rx] Omeprazole 20 mg PO DAILY #30 tablet. 12/08/18 [Rx] Follow up Appointment(s)/Referral(s): [facility], [NON-STAFF] - Isidro Lewis MD [Primary Care Provider] - 1-2 days Victoria Rai MD [STAFF PHYSICIAN] - 1 Week Jarred Farris DO [Doctor of Osteopathic Medicine] - 10 Days Activity/Diet/Wound Care/Special Instructions: Continue soft food diet Continue to increase activity Take antibiotics as prescribed Okay to shower, do not scrub on catheter site Discharge Disposition: HOME SELF-CARE
== END 2018-12-08 13:09 | disposition home or self-care (01) | DRG 373 ==
LOC: EC 17:03 → 4SSUR 18:34 → OBSVTOIN 12-05 13:19
PROVIDERS: ADMIT Surgery; ATTEND Surgery
PROC: 0D9J30Z Drainage of Appendix with Drainage Device, Percutaneous Approach (ICD-10-PCS; principal; 2018-12-05)
DX: K35.33 Acute appendicitis with perforation, localized peritonitis, and gangrene, with abscess (principal); J44.9 Chronic obstructive pulmonary disease, unspecified; H91.90 Unspecified hearing loss, unspecified ear; M19.90 Unspecified osteoarthritis, unspecified site; J30.9 Allergic rhinitis, unspecified; E07.9 Disorder of thyroid, unspecified; F32.9 Major depressive disorder, single episode, unspecified; Z79.1 Long term (current) use of non-steroidal anti-inflammatories (NSAID); Z79.890 Hormone replacement therapy; Z79.899 Other long term (current) drug therapy; Z82.49 Family history of ischemic heart disease and other diseases of the circulatory system; Z88.1 Allergy status to other antibiotic agents; Z87.891 Personal history of nicotine dependence; Z98.42 Cataract extraction status, left eye; Z98.41 Cataract extraction status, right eye; Z98.890 Other specified postprocedural states
CPT/HCPCS: 36415; 74177; 75989; 77012; 80048; 82565; 84520; 85025; 85610; 87070; 87075; 87077; 87186; 87205; 96365; 99284

== ENCOUNTER → 2018-12-04 | Outpatient (CLI) | payer MEDICARE ==
--- NOTE | 2018-12-04 16:14 | CT ---
EXAMINATION TYPE: CT abdomen pelvis w con DATE OF EXAM: 12/04/2018 COMPARISON: None HISTORY: Abdominal pain and fever CT DLP: 511.1 mGycm Automated exposure control for dose reduction was used. TECHNIQUE: Helical acquisition of images from the lung bases through the pelvis have been completed. CONTRAST: Performed with Oral Contrast and with IV Contrast, patient injected with 100 mL of Isovue 300. FINDINGS: Small hiatal hernia present. LUNG BASES: Some minimal subpleural inflammatory change may be present, axial image #11 posterior lat eral right lung base, findings nonspecific and could represent some scarring AORTA: No significant abnormality is appreciated. LIVER/GB: No significant abnormality is appreciated. PANCREAS: No significant abnormality is seen. SPLEEN: No significant abnormality is seen. ADRENALS: No significant abnormality is seen. KIDNEYS: Upper pole the right kidney shows an exophytic cortical cyst measuring 3 cm. No hydronephros is bilaterally. No evident ureteral calcification. REPRODUCTIVE ORGANS: The right ovary is not well seen and may be secondarily affected by the inflamma tory change in the right lower quadrant. BOWEL: Within the right lower quadrant there is a abnormal fluid collection present extending from t he level of the appendix. There is an enhancing wall, the abnormality measures approximately 3.3 x 4. 7 x 2.9 cm. There is periappendiceal inflammatory change present. FREE AIR: No Free Air visible. ASCITES: None visible. PELVIC ADENOPATHY: None visualized. RETROPERITONEAL ADENOPATHY: No Retroperitoneal Adenopathy visible. URINARY BLADDER: No significant abnormality is seen. OSSEOUS STRUCTURES: No significant abnormality is seen. IMPRESSION: FINDINGS LIKELY REPRESENT APPENDICITIS. THERE MAY BE A RIGHT OVARIAN CYST OR POSSIBLY SECONDARY INFEC TION OF THE RIGHT OVARY AND ADNEXAL STRUCTURES VERSUS PERIAPPENDICEAL ABSCESS. RESULTS RELAYED TO THE OFFICE OF DR. Lewis AT THE TIME OF INTERPRETATION.
== END ==
LOC: RADCTMAIN 13:56
PROVIDERS: ATTEND Family Medicine
DX: R10.9 Unspecified abdominal pain (principal)
CPT/HCPCS: 82565; 84520; 74177; 36415; Q9967

== ENCOUNTER → 2018-12-20 | Outpatient (CLI) | payer MEDICARE ==
[2018-12-20 14:33] LABS: African American GFR (CKD) >90 (>60 ml/min/1.73 sqM); Blood Urea Nitrogen 27 mg/dL (7-17); Non-African American GFR(CKD) 83 (>60 ml/min/1.73 sqM)
--- NOTE | 2018-12-21 08:21 | CT ---
EXAMINATION TYPE: CT abdomen pelvis w con DATE OF EXAM: 12/20/2018 COMPARISON: 12/04/2018 HISTORY: Cutaneous abscess CT DLP: 510.2 mGycm Automated exposure control for dose reduction was used. TECHNIQUE: Helical acquisition of images was performed from the lung bases through the pelvis. CONTRAST: Performed with Oral Contrast and with IV Contrast, patient injected with 100 mL of Isovue 300. FINDINGS: LUNG BASES: Redemonstration of minimal subpleural inflammatory change on axial image 5. Otherwise, vi sualized lung bases are clear. LIVER/GB: No significant abnormality is appreciated. PANCREAS: No significant abnormality is seen. SPLEEN: No significant abnormality is seen. ADRENALS: No significant abnormality is seen. KIDNEYS: Redemonstration of exophytic cortical cyst measuring up to 3 cm. No hydronephrosis. Symmetri c perfusion of bilateral kidneys. No renal stones. FREE AIR: No free air is visualized. RETROPERITONEAL ADENOPATHY: None visualized REPRODUCTIVE ORGANS: No significant abnormality is seen URINARY BLADDER: No significant abnormality is seen. PELVIC ADENOPATHY: None visualized. OSSEOUS STRUCTURES: Multilevel lumbar spondylosis from T12-L4 most severe at L2-3 and L3-4 with mini mal retrolisthesis. BOWEL: Previously seen right lower quadrant fluid collection has significantly decreased in size wit h a tiny retained area of minimally peripherally enhancing fluid collection seen on axial image 51 me asuring 1.4 cm with previous measurements of up to 4.7 cm. There is air within the proximal lumen of the appendix, but the distal appendix is fluid-filled and mildly prominent measuring up to 0.6 cm on coronal image 33. Inflammatory stranding is seen around this area, but appears less prominent when co mpared to prior exam. No bowel obstruction. No ascites. No free intraperitoneal air. OTHER: Redemonstration of mildly prominent bilateral femoral lymph nodes measuring up to 0.9 cm, grea ter on the right on axial image 74. Findings are stable when compared to prior exam. IMPRESSION: IMPROVING INFLAMMATORY CHANGES IN THE RIGHT LOWER QUADRANT WITH MINIMAL INFLAMMATION REMAINING AND SC LDLY PROMINENT TIP OF THE APPENDIX MEASURING UP TO 0.7 CM. THERE IS AIR WITHIN THE PROXIMAL LUMEN OF THE APPENDIX. THERE IS ALSO DECREASE IN THE SIZE OF THE RIGHT OVARY AND LIKELY RIGHT OVARIAN CYST. DI FFERENTIAL FOR THESE FINDINGS MAY BE RELATED TO TYPHLITIS, RESOLVING APPENDICITIS OR IMPROVING REACTI VE CHANGES FROM RIGHT OVARY PATHOLOGY SUCH TORSION/DETORSION OR HEMORRHAGIC CYST. IF SYMPTOMS PERS IST, REPEAT CT EXAM OR PELVIC ULTRASOUND MAY BE OBTAINED. Nonspecific bilateral prominent femoral lymph nodes, similar to prior.
== END | disposition home or self-care (01) ==
LOC: RADCTMAIN 13:42
PROVIDERS: ATTEND Internal Medicine Infectious Disease
DX: K37 Unspecified appendicitis (principal)
CPT/HCPCS: 82565; 84520; 74177; 36415; Q9967

== ENCOUNTER → 2023-09-15 | Outpatient (CLI) | payer MEDICARE ==
--- NOTE | 2023-09-15 11:15 | XR ---
EXAM TYPE: LUMBAR SPINE X RAY SERIES COMPARISON: None HISTORY: Pain TECHNIQUE: 4 views are submitted. FINDINGS: Scoliosis of the spine with diffuse osteopenia and severe degenerative disc disease at all levels. Hy pertrophic SI joint arthropathy. There is a compression deformities of L3 and T12 of indeterminate ag e. Multilevel facet arthropathy. Vascular calcifications seen with grade 1 anterior listhesis of L5 o n S1. Suspect multilevel foraminal encroachment. Report was called to the referring clinician 11:11 A M 09/15/2023. IMPRESSION: 1. Scoliosis, diffuse osteopenia and multilevel degenerative disc disease and facet arthropathy. 2. There are age indeterminate compression fractures L3 and T12. Correlate clinically and with MRI as clinically warranted.
== END | disposition home or self-care (01) ==
LOC: RADXRMAIN 10:39
PROVIDERS: ATTEND Family Medicine
DX: M47.816 Spondylosis without myelopathy or radiculopathy, lumbar region (principal); M51.36 Other intervertebral disc degeneration, lumbar region; M85.88 Other specified disorders of bone density and structure, other site; M48.54XA Collapsed vertebra, not elsewhere classified, thoracic region, initial encounter for fracture; M48.56XA Collapsed vertebra, not elsewhere classified, lumbar region, initial encounter for fracture
CPT/HCPCS: 72100

== ENCOUNTER → 2023-10-21 | Outpatient (CLI) | payer MEDICARE ==
--- NOTE | 2023-10-23 21:23 | MR ---
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 COMPARISON: 09/15/2023 12/20/2018 TECHNIQUE: Multi planar, multi sequence imaging was performed utilizing: T1-weighted, T2-weighted, a nd turbo inversion recovery imaging of the lumbar spine. IV Contrast: cc . (None if empty) FINDINGS: Alignment: The lumbar vertebral bodies have preserved heights and alignment. Cord: The conus medullaris and the distal spinal cord appear unremarkable with regards to their signa l intensity and morphology. Bones/Discs: Moderate to severe degeneration changes of the spine with joint space narrowing osteophy te formation and Schmorl's nodes present. No abnormal inversion recovery edema within T12 vertebral b ivy with compression deformity with up to 50% height loss. No significant retropulsion. There is supe rior endplate edema of the L1 superior endplate. Reactive bony edema of the adjoining endplates of L2 -L3 and L3-L4. T12-L1: No evidence of significant spinal canal stenosis or neural foraminal stenosis. L1-L2: Disc bulge and facet joint arthropathy result in mild spinal canal and mild bilateral neural f oraminal stenosis. L2-L3: Disc bulge and facet joint arthropathy result in mild spinal canal and moderate to severe neur al foraminal stenosis. L3-L4: Disc bulge and facet joint arthropathy result in severe spinal canal and severe bilateral neur al foraminal stenosis. L4-L5: Disc bulge and facet joint arthropathy result in moderate to severe spinal canal and mild righ t and moderate left neural foraminal stenosis. L5-S1: The disc has a rounded posterior morphology without significant spinal canal stenosis. Facet j oint arthropathy with mild bilateral neural foraminal stenosis. No significant spinal canal or neural foraminal stenosis in the remainder of the visualized levels. Other findings: Right renal cyst. IMPRESSION: 1. Compression deformity of the T12 vertebrae with 50% height loss and minimal retropulsion. No sign ificant spinal canal stenosis. 2. L3-L4 severe spinal canal stenosis and severe bilateral neural foraminal stenosis. 3. Moderate to severe disc degeneration with associated osteoarthritic changes with multilevel sever e neural femoral stenosis as described above.
== END | disposition home or self-care (01) ==
LOC: RADMRIMAIN 13:13
PROVIDERS: ATTEND Orthopaedic Surgery Orthopaedic Surgery of the Spine
DX: M47.816 Spondylosis without myelopathy or radiculopathy, lumbar region (principal); S22.080A Wedge compression fracture of T11-T12 vertebra, initial encounter for closed fracture; M25.78 Osteophyte, vertebrae; M41.86 Other forms of scoliosis, lumbar region; M43.16 Spondylolisthesis, lumbar region; M51.26 Other intervertebral disc displacement, lumbar region; S32.030A Wedge compression fracture of third lumbar vertebra, initial encounter for closed fracture
CPT/HCPCS: 72148